=== PATIENT | male | born 1965 | race Two or more races ===

== ENCOUNTER 2023-10-14 10:08 | Emergency (ER) | payer BC, MEDICAID ==
[~2023-10-14] VITALS: Ht 188 cm; Wt 102.2 kg
[2023-10-14] MEDS ORDERED: ETOMIDATE (2MG/ML) 20ML VIAL IV ONE ×2 (11:45→11:58)
[2023-10-14 12:27] VITALS: BP 169/105; PULSE 82; RESP 18; TEMP 97.6; O2SAT 96
== END 2023-10-14 14:35 | disposition home or self-care (01) ==
LOC: ER 10:08
DX: S43.084A Other dislocation of right shoulder joint, initial encounter (principal); Z88.8 Allergy status to other drugs, medicaments and biological substances; W18.39XA Other fall on same level, initial encounter; Y93.89 Activity, other specified; Y92.89 Other specified places as the place of occurrence of the external cause; Y99.8 Other external cause status
CPT/HCPCS: 23650; 73020; 73030; 73080; 99152; 99153